=== PATIENT | female | born 1935 | race Caucasian/White ===

== ENCOUNTER 2024-01-04 10:38 | Outpatient (CLI) | payer MEDICARE, BC | END 2024-01-04 10:39 | disposition home or self-care (01) | LOC: BICMAMMO 10:38 | PROVIDERS: ATTEND Nurse Practitioner Family | DX: Z13.820 Encounter for screening for osteoporosis (principal); Z78.0 Asymptomatic menopausal state | CPT/HCPCS: 77080 ==